=== PATIENT | male | born 1965 | race African-American/Black ===

== ENCOUNTER 2023-12-08 19:17 | Emergency (ER) | payer OTHER ==
[~2023-12-08] VITALS: Ht 167.6 cm; Wt 72.0 kg
[2023-12-08 19:22] VITALS: O2SAT 98
[2023-12-08] MEDS ORDERED: CEPH500C2 MT (22:06)
[2023-12-08 22:21] VITALS: BP 202/117; PULSE 91; RESP 20; TEMP 98.4
== END 2023-12-08 22:28 | disposition home or self-care (01) ==
LOC: ER 19:17
DX: L03.115 Cellulitis of right lower limb (principal)
CPT/HCPCS: 73610; 93971; 99284

== ENCOUNTER 2024-03-19 14:09 | Emergency (ER) | payer OTHER ==
[~2024-03-19] VITALS: Ht 165.1 cm; Wt 79.4 kg
[~2024-03-19 14:09] MED LIST: CEPH500C2 MT
[2024-03-19 14:17] VITALS: O2SAT 98
[2024-03-19 16:08] LABS: BASOPHILS % 1.2 % (0.0-2.0); EOSINOPHILS % 3.5 % (0.0-5.0); HEMATOCRIT. 39.7 % (42.0-52.0); HEMOGLOBIN. 12.6 g/dL (14.0-18.0); LYMPHOCYTES % 32.6 % (20.0-50.0); MEAN CORPUSCULAR HEMOGLOBIN 27.6 pg (28.0-32.0); MEAN CORPUSCULAR HGB CONC 31.8 g/dL (31.0-37.0); MEAN CORPUSCULAR VOLUME 86.8 fL (80.0-94.0); MEAN PLATELET VOLUME 8.8 fl (7.4-10.4); MONOCYTES % 8.4 % (2.0-8.0); NEUTROPHILS % 54.3 % (40.0-76.0); PLATELET 211 x1000/uL (130-400); RED BLOOD CELL COUNT 4.58 mill/uL (4.7-6.1); WHITE BLOOD COUNT 6.8 x1000/uL (4.5-11.0)
[2024-03-19 16:11] LABS: CHLORIDE 108 mEq/L (98-107); POTASSIUM 3.8 mEq/L (3.5-5.1); SODIUM 141 mEq/L (136-145)
[2024-03-19 16:12] LABS: CALCIUM 9.3 mg/dL (8.7-10.4); CARBON DIOXIDE 28 mEq/L (21-32)
[2024-03-19 16:17] LABS: CREATININE 1.3 mg/dL (0.6-1.3); GLUCOSE 85 mg/dL (70-105); UREA NITROGEN BLOOD 11 mg/dL (9-23)
[2024-03-19 16:19] LABS: ALANINE AMINOTRANSFERASE 16 IU/L (10-49); ALBUMIN 4.5 g/dL (3.2-4.8); ASPARTATE AMINOTRANSFERASE 20 IU/L (<34); BILIRUBIN TOTAL 1.6 mg/dL (0.1-1.0); PROTEIN TOTAL 6.8 g/dL (6.0-8.3)
[2024-03-19] MEDS ORDERED: AMLO5TAB88 MT (16:22)
[2024-03-19 16:41] VITALS: BP 162/84; PULSE 80; TEMP 98.3
== END 2024-03-19 16:41 | disposition home or self-care (01) ==
LOC: ER 14:20
DX: I10 Essential (primary) hypertension (principal)
CPT/HCPCS: 36415; 80053; 85025; 99283